=== PATIENT | female | born 1945 | race Two or more races ===

== ENCOUNTER 2020-08-29 04:36 | Day surgery (SDC) | payer OTHER ==
[2020-08-28 13:07] VITALS: BMI 29.2
[2020-08-29] MEDS ORDERED: LIDOCAINE HCL/PF 2% SDV 5ML VIAL ONE (09:18)
[2020-08-29] MEDS ORDERED: DEXAMETHASONE SOD PHOSPHATE 4 MG/1 ML VIAL ONE (09:18)
[2020-08-29] MEDS ORDERED: MIDAZOLAM HCL 2 MG/2 ML SINGLE DOSE VIAL ONE (09:19)
[2020-08-29] MEDS ORDERED: PROPOFOL 20 ML ONE (09:19)
[2020-08-29] MEDS ORDERED: ceFAZolin 2 GRAM PREMIX BAG IVPB ONE (09:30)
[2020-08-29] MEDS ORDERED: GENTAMICIN SO4 80 MG/2 ML VIAL ONE (09:34)
[2020-08-29] MEDS ORDERED: ceFAZolin SODIUM 1 GM VIAL ONE (09:34)
[2020-08-29] MEDS ORDERED: GENTAMICIN 80MG PREMIX BAG IVPB ONE (09:34)
[2020-08-29] MEDS ORDERED: FUROSEMIDE 40 MG/4 ML INJECTABLE VIAL ONE (09:56)
[2020-08-29] MEDS ORDERED: oxyCODONE HCL 5 MG TABLET PO PRN ×2 (10:23→10:43)
[2020-08-29] MEDS ORDERED: ONDANSETRON 4 MG/2 ML VIAL IVPUSH PRN (10:23)
[2020-08-29] MEDS ORDERED: LACTATED RINGERS SOLUTION 1,000 ML IV SCH (10:30)
[2020-08-29] MEDS ORDERED: DEXTROSE 5%-0.45% SALINE 1,000 ML IV SCH (10:45)
[2020-08-29] MEDS ORDERED: ACETAMINOPHEN 325 MG TABLET (FP) ONE (12:49)
[2020-08-29 15:00] VITALS: BP 140/61; PULSE 88; TEMP 97.7
== END 2020-08-29 14:45 | disposition home or self-care (01) ==
LOC: JASU-SURG 04:36
PROVIDERS: ATTEND Urology
PROC: 0TC78ZZ Extirpation of Matter from Left Ureter, Via Natural or Artificial Opening Endoscopic (ICD-10-PCS; principal; 2020-08-29 09:30)
PROC: 0T778DZ Dilation of Left Ureter with Intraluminal Device, Via Natural or Artificial Opening Endoscopic (ICD-10-PCS; 2020-08-29 09:30)
DX: N20.0 Calculus of kidney (principal); N20.1 Calculus of ureter
CPT/HCPCS: 36415; 82360; 88300-TC; 94760

== ENCOUNTER 2020-09-26 04:22 | Day surgery (SDC) | payer OTHER ==
[2020-09-25 15:11] VITALS: BMI 28.3
[2020-09-26] MEDS ORDERED: LIDOCAINE HCL/PF 2% SDV 5ML VIAL ONE (07:13)
[2020-09-26] MEDS ORDERED: DEXAMETHASONE SOD PHOSPHATE 4 MG/1 ML VIAL ONE (07:13)
[2020-09-26] MEDS ORDERED: PROPOFOL 20 ML ONE (07:14)
[2020-09-26] MEDS ORDERED: AMPICILLIN NA/SULBACTAM NA 1.5 GM/100 ML PRE-DOCKED IVPB ONE (07:54)
[2020-09-26] MEDS ORDERED: FUROSEMIDE 40 MG/4 ML INJECTABLE VIAL ONE (07:56)
[2020-09-26] MEDS ORDERED: AMPICILLIN NA/SULBACTAM NA 1.5 GM in SODIUM CHLORIDE 100 ML IVPB ONE (08:00)
[2020-09-26] MEDS ORDERED: oxyCODONE HCL 5 MG TABLET PO PRN (08:43)
[2020-09-26] MEDS ORDERED: DEXTROSE 5%-0.45% SALINE 1,000 ML IV SCH (08:45)
[2020-09-26] MEDS ORDERED: ONDANSETRON 4 MG/2 ML VIAL IVPUSH PRN (08:47)
[2020-09-26] MEDS ORDERED: LACTATED RINGERS SOLUTION 1,000 ML IV SCH (09:00)
[2020-09-26 10:26] VITALS: BP 163/78; PULSE 87; TEMP 98
[2020-10-08 10:04] LABS: SIZE 3X4
[2020-10-08 10:05] LABS: CA OXALATE MONOHYDR. 100%; WEIGHT 48
== END 2020-09-26 12:55 | disposition home or self-care (01) ==
LOC: JASU-SURG 04:22
PROVIDERS: ATTEND Urology
PROC: 0TC48ZZ Extirpation of Matter from Left Kidney Pelvis, Via Natural or Artificial Opening Endoscopic (ICD-10-PCS; principal; 2020-09-26 07:30)
PROC: 0TC78ZZ Extirpation of Matter from Left Ureter, Via Natural or Artificial Opening Endoscopic (ICD-10-PCS; 2020-09-26 07:30)
PROC: 0T778DZ Dilation of Left Ureter with Intraluminal Device, Via Natural or Artificial Opening Endoscopic (ICD-10-PCS; 2020-09-26 07:30)
DX: N20.0 Calculus of kidney (principal); N20.1 Calculus of ureter
CPT/HCPCS: 36415; 82360; 88300-TC; 94760

== ENCOUNTER 2020-09-28 07:44 | Emergency (ER) | payer OTHER ==
[2020-09-28 08:03] VITALS: BMI 28.3
[2020-09-28] MEDS ORDERED: FAMOTIDINE 20 MG/50 ML IVPB 20 MG/50 ML MG IVPB ONE ×2 (08:03→08:43)
[2020-09-28] MEDS ORDERED: methylPREDNISolone NA SUCC 125 MG/2 ML VIAL IVPUSH ONE (08:04)
[2020-09-28] MEDS ORDERED: EPINEPHrine/PF 1 MG/1 ML (1:1,000) AMPULE ONE (08:05)
[2020-09-28] MEDS ORDERED: methylPREDNISolone NA SUCC 125 MG/2 ML VIAL ONE (08:06)
[2020-09-28] MEDS ORDERED: SODIUM CHLORIDE 0.9% 500 ML INFUS.BAG IV ONE (08:09)
[2020-09-28 09:18] VITALS: TEMP 98.5
[2020-09-28] MEDS ORDERED: SULFAMETHOXAZOLE/TRIMETHOPRIM 800MG/160MG D.S. TABLET PO ONE (10:52)
[2020-09-28] MEDS ORDERED: SULFAMETHOXAZOLE/TRIMETHOPRIM 800MG/160MG D.S. TABLET ONE (11:26)
[2020-09-28 12:37] VITALS: BP 128/58; PULSE 68
== END 2020-09-28 12:37 | disposition home or self-care (01) ==
LOC: JER 07:44
PROC: 3E033NZ Introduction of Analgesics, Hypnotics, Sedatives into Peripheral Vein, Percutaneous Approach (ICD-10-PCS; principal; 2020-09-28)
PROC: 3E033GC Introduction of Other Therapeutic Substance into Peripheral Vein, Percutaneous Approach (ICD-10-PCS; 2020-09-28)
PROC: 3E033GC Introduction of Other Therapeutic Substance into Peripheral Vein, Percutaneous Approach (ICD-10-PCS; 2020-09-28)
DX: T78.40XA Allergy, unspecified, initial encounter (principal)
CPT/HCPCS: 99285-25

== ENCOUNTER 2020-12-19 04:26 | Day surgery (SDC) | payer OTHER ==
[2020-12-18 15:01] VITALS: BMI 28.3
[2020-12-19] MEDS ORDERED: ACETAMINOPHEN 325 MG TABLET (FP) PO PRN (11:31)
[2020-12-19] MEDS ORDERED: ONDANSETRON 4 MG/2 ML VIAL IVPUSH PRN (11:31)
[2020-12-19] MEDS ORDERED: SUCCINYLCHOLINE CHLORIDE 200 MG/10 ML SYRINGE ONE (11:42)
[2020-12-19] MEDS ORDERED: PROPOFOL 20 ML ONE ×2 (11:43)
[2020-12-19] MEDS ORDERED: LACTATED RINGERS SOLUTION 1,000 ML IV SCH (11:45)
[2020-12-19] MEDS ORDERED: VANCOMYCIN 1,000 MG VIAL (RESTRICTED TO ID ONLY) IVPB ONE (11:50)
[2020-12-19] MEDS ORDERED: ePHEDrine SULFATE 50 MG/1 ML AMPULE ONE (12:06)
[2020-12-19] MEDS ORDERED: VANCOMYCIN 1,000 MG VIAL (RESTRICTED TO ID ONLY) ONE (12:08)
[2020-12-19] MEDS ORDERED: FUROSEMIDE 40 MG/4 ML INJECTABLE VIAL ONE (12:16)
[2020-12-19] MEDS ORDERED: oxyCODONE HCL 5 MG TABLET PO PRN (12:42)
[2020-12-19] MEDS ORDERED: DEXTROSE 5%-0.45% SALINE 1,000 ML IV SCH (12:45)
[2020-12-19] MEDS ORDERED: ACETAMINOPHEN 325 MG TABLET (FP) PO ONE (15:05)
[2020-12-19] MEDS ORDERED: ACETAMINOPHEN 325 MG TABLET (FP) ONE (15:08)
[2020-12-19 15:17] VITALS: BP 155/78; PULSE 72; TEMP 97.9
== END 2020-12-19 15:20 | disposition home or self-care (01) ==
LOC: JASU-SURG 04:26
PROVIDERS: ATTEND Urology
PROC: 0TC78ZZ Extirpation of Matter from Left Ureter, Via Natural or Artificial Opening Endoscopic (ICD-10-PCS; principal; 2020-12-19 11:30)
PROC: 0T778DZ Dilation of Left Ureter with Intraluminal Device, Via Natural or Artificial Opening Endoscopic (ICD-10-PCS; 2020-12-19 11:30)
PROC: BT1FYZZ Fluoroscopy of Left Kidney, Ureter and Bladder using Other Contrast (ICD-10-PCS; 2020-12-19 11:30)
DX: N20.1 Calculus of ureter (principal); N13.5 Crossing vessel and stricture of ureter without hydronephrosis
CPT/HCPCS: 76000-TC-FY; 94760